=== PATIENT | male | born 2000 | race Two or more races ===

== ENCOUNTER 2024-06-16 09:39 | Emergency (ER) | payer MEDICAID, SELFPAY ==
[2024-06-16 10:31] VITALS: BP 141/84; PULSE 116; RESP 18; TEMP 37.3; O2SAT 95; BMI 23.8
--- NOTE | 2024-06-16 11:00 | EDNOTE_ITS ---
Upper Respiratory Inf. RME/HPI General Chief Complaint: Flu Like Symptoms Stated Complaint: BAD CHILLS/BODYACHES Time Seen by Provider: 06/16/24 10:07 Arrival date/time: 06/16/24 09:39 This is a 23-year-old male that comes in with complaints of back pain, chills, fever, body aches, sore throat, headache and congestion that started a few days ago. Patient states that his throat feels sore for the past couple weeks. Patient denies any past medical history. Related Data Previous Rx's ?Medication ?Instructions ?Recorded Albuterol Sulfate HFA (INHALER) 1 - 2 puff inhalation Q4-6HRPRN ##1 12/13/11 (PROVENTIL HFA (INHALER)) ibuprofen 800 mg tablet 800 mg PO TID PRN pain #30 t abs 10/23/20 ibuprofen 800 mg tablet 800 mg PO TID PRN pain #30 t abs 11/09/22 hydroxyzine HCl 50 mg tablet 50 mg PO TID PRN anxiety #30 tabs 05/03/23 amoxicillin 875 mg-potassium 1 tab PO BID 7 days #14 t abs 06/16/24 clavulanate 125 mg tablet ibuprofen 800 mg tablet 800 mg PO Q6H PRN pain #14 t abs 06/16/24 Allergies Allergy/AdvReac Type Severity Reaction Status Date / Time No Known Allergies Allergy Verified 06/16/24 09:41 Course Orders Category Date Time Status Bedside Influenza A&B Antigen Test NOW Care 06/16/24 11:00 Active Acetaminophen Tab [Tylenol ES Tab] Med 06/16/24 11:00 Discontinued 1,000 mg PO X1 ONE Ibuprofen Tab [Motrin Tab] Med 06/16/24 11:00 Discontinued 800 mg PO X1 ONE Vital Signs Vital signs: Vital Signs Temperature 99.2 F 06/16/24 10:31 Pulse Rate 116 H 06/16/24 10:31 Respiratory Rate 18 06/16/24 10:31 Blood Pressure 141/84 H 06/16/24 10:31 Pulse Oximetry (%) 95 06/16/24 10:31 Oxygen Delivery Method Room Air 06/16/24 10:31 Upper Respiratory Infection Medications / Prescriptions Medication administrations:: Medication Administration History Discontinued Medications Acetaminophen (Acetaminophen 500 Mg Tablet) 1,000 mg PO X1 ONE Stop: 06/16/24 11:01 Last Admin: 06/16/24 11:07 Dose: 1,000 mg Documented By: CATHERINE Ibuprofen (Ibuprofen Tab 400 Mg Tablet) 800 mg PO X1 ONE Stop: 06/16/24 11:01 Last Admin: 06/16/24 11:06 Dose: 800 mg Documented By: CATHERINE Discharge Plan Plan Patient Disposition: HOME (Self Care) Patient condition on transfer: Stable Prescriptions/Referrals Prescriptions/Med Rec: New ibuprofen 800 mg tablet 800 mg PO Q6H PRN (Reason: pain) Qty: 14 0RF amoxicillin-pot clavulanate 875-125 mg tablet 1 tab PO BID 7 Days Qty: 14 0RF No Action Albuterol Sulfate HFA (INHALER) (PROVENTIL HFA (INHALER)) 8.5 GM HFA.AER.AD 1 - 2 puff Inhalation Q4-6HRPRN Qty: 1 0RF Rx Instructions: with spacer ibuprofen 800 mg tablet 800 mg PO TID PRN (Reason: pain) Qty: 30 0RF ibuprofen 800 mg tablet 800 mg PO TID PRN (Reason: pain) Qty: 30 0RF hydroxyzine HCl 50 mg tablet 50 mg PO TID PRN (Reason: anxiety) Qty: 30 0RF Problem List Clinical Impression: Acute bacterial tonsillitis, Influenza A Patient/Caregiver Discharge Instructions Discharge Activity: activity as tolerated Education Materials: Tonsillitis in Adults, The Flu (Influenza) Additional Instructions: Follow up with primary provider in 1-2 days. Come back to ED if symptoms change or worsen Print Language: Maori Stand Alone Forms: Yasmine Award Info., Patient Portal Info Letter PA/TOOTH CLERK Supervising Physician PA/TOOTH CLERK Supervising Physician: gladys
[2024-06-16] MEDS: IBUPROFEN TAB 400 MG TABLET 800 MG PO (11:06)
[2024-06-16] MEDS: ACETAMINOPHEN 500 MG TABLET 1000 MG PO (11:07)
== END 2024-06-16 11:24 | disposition home or self-care (01) ==
LOC: SERX 11:17
PROVIDERS: Emergency Provider Family Medicine
DX: J10.1 Influenza due to other identified influenza virus with other respiratory manifestations (principal)
CPT/HCPCS: 87400; 99283; A9270

== ENCOUNTER 2024-12-31 05:56 | Emergency (ER) | payer MEDICAID, SELFPAY ==
[2024-12-31 05:57] VITALS: BMI 37.0
[2024-12-31 06:25] VITALS: BP 137/91; PULSE 72; RESP 19; TEMP 36.7; O2SAT 100
--- NOTE | 2024-12-31 06:29 | XR_ITS ---
Examination: PA lateral chest 2 views Technique: Upright PA lateral chest 2 views Date and time: December 31, 2024, 0716 hrs., Comparison November 09, 2022 Indications: Chest pain today. Findings: No significant cardiac enlargement. No pneumonia or pulmonary edema The osseous structures are intact Impression: No active disease
--- NOTE | 2024-12-31 06:29 | EKG_ITS ---
[facility] Test Date: 2024-12-31 Pat Name: CURTIS CHACON Department: Room: - Gender: Male [employer]: : 2000 Requested By: Zaire Diaz Order Number: [id number] Reading MD: Zaire Diaz Measurements Intervals [place] Rate: 67 P: 34 CT: 134 QRS: 9 QRSD: 113 T: 44 QT: 418 QTc: 444 Interpretive Statements SINUS RHYTHM WITH SINUS ARRHYTHMIA MODERATE INTRAVENTRICULAR CONDUCTION DELAY [110+ ms QRS DURATION] NONSPECIFIC ST ELEVATION [0.05+ mV ST ELEVATION] Compared to ECG 11/09/2022 12:21:14 Intraventricular conduction delay now present ST (T wave) deviation now present /store/S0/[id number]/ecg/[id number].pdf
--- NOTE | 2024-12-31 06:36 | PD.EDARRY ---
ED Arrhythmia Palp. RME/HPI General Chief Complaint: Shortness of Breath/Dyspnea Stated Complaint: DIFFICULTY BREATHING, FEELS LIKE FAINTING Time Seen by Provider: 12/31/24 06:21 Source: patient Arrival date/time: 12/31/24 05:56 24-year-old male with no known medical history presents to the emergency room with a chief complaint of difficulty breathing and palpitations x 1 hour Mode of arrival: ambulatory Limitations: no limitations Related Data Previous Rx's ?Medication ?Instructions ?Recorded Albuterol Sulfate HFA (INHALER) 1 - 2 puff inhalation Q4-6HRPRN ##1 12/13/11 (PROVENTIL HFA (INHALER)) ibuprofen 800 mg tablet 800 mg PO TID PRN pain #30 tabs 10/23/20 ibuprofen 800 mg tablet 800 mg PO TID PRN pain #30 tabs 11/09/22 hydroxyzine HCl 50 mg tablet 50 mg PO TID PRN anxiety #30 tabs 05/03/23 ibuprofen 800 mg tablet 800 mg PO Q6H PRN pain #14 tabs 06/16/24 Allergies Allergy/AdvReac Type Severity Reaction Status Date / Time No Known Allergies Allergy Verified 06/16/24 09:41 Review of Systems Review of Systems Systems Reviewed: All systems reviewed, normal except as documented Constitutional Constitutional: Reports system reviewed and no additional complaints, except as documented, Denies fatigue, Denies fever(s), Denies headache(s) and Denies weakness Eyes Eyes: Reports system reviewed and no additional complaints, except as documented, Denies blurry vision and Denies change in vision ENT Ears, Nose, Mouth, and Throat: Reports system reviewed and no additional complaints, except as documented, Denies otalgia, Denies headache(s), Denies nasal congestion, Denies throat swelling and Denies vertigo Cardiovascular Cardiovascular: Reports system reviewed and no additional complaints, except as documented, Denies chest pain, Denies dyspnea, Denies dyspnea on exertion, Reports irregular heart rhythm, Reports lightheadedness, Reports palpitations and Reports paroxysmal nocturnal dyspnea Respiratory Respiratory: Reports system reviewed and no additional complaints, except as documented, Denies chest congestion, Denies cough, Denies dyspnea, Denies dyspnea on exertion and Denies wheezing Gastrointestinal Gastrointestinal: Reports system reviewed and no additional complaints, except as documented, Denies abdominal pain, Denies cramping, Denies nausea and Denies vomiting Genitourinary Genitourinary: Reports system reviewed and no additional complaints, except as documented, Denies dysuria and Denies hematuria Musculoskeletal Musculoskeletal: Reports system reviewed and no additional complaints, except as documented and Denies back pain Integumentary/Breasts Skin/Breast: Reports system reviewed and no additional complaints, except as documented and Denies wounds Neurologic Neurologic: Reports system reviewed and no additional complaints, except as documented, Denies confusion, Denies headache(s), Denies lack of coordination, Denies vertigo and Denies weakness Psychiatric Psychiatric: Reports system reviewed and no additional complaints, except as documented, Denies anxiety, Denies confusion, Denies depression, Denies paranoia, Denies suicidal ideation and Denies tactile hallucinations Endocrine Endocrine: Reports system reviewed and no additional complaints, except as documented, Denies fatigue and Reports palpitations Hematologic/Lymphatic Hematologic/Lymphatic: Reports system reviewed and no additional complaints, except as documented and Denies lymphadenopathy Allergic/Immunologic Allergic/Immunologic: Reports system reviewed and no additional complaints, except as documented, Denies throat swelling, Denies urticaria and Denies wheezing ED Exam General Limitations: Present no limitations General appearance: Present alert and in no apparent distress Head Head exam: Present atraumatic Eye Eye exam: Present normal appearance, PERRL and EOMI ENT ENT exam: Present normal exam, normal oropharynx and mucous membranes moist Neck Neck exam: Present normal inspection, full ROM and trachea midline Chest Chest inspection: Present normal inspection and symmetric chest wall rise Respiratory Respiratory exam: Present normal lung sounds bilaterally Cardiovascular Cardiovascular exam: Present regular rate, normal rhythm, normal heart sounds, +S1 and +S2; Absent bradycardia, tachycardia, irregular rhythm, systolic murmur, diastolic murmur, rubs, gallop, clicks, JVD, +S3 or +S4 Abdominal Exam Abdominal exam: Present soft and normal bowel sounds; Absent tenderness Extremities Exam Extremities exam: Present normal inspection and full ROM Back Exam Back exam: Present normal inspection and full ROM Neurological Exam Neurological exam: Present alert, oriented X3 and CN II-XII intact Psychiatric Psychiatric exam: Present normal affect and normal mood Skin Skin exam: Present warm, dry, intact and normal color Course Quality Measures none Orders Category Date Time Status EKG (ED ONLY) *Do not use* NOW Care 12/31/24 06:29 Completed EKG (ED Only) Stat Exams 12/31/24 06:29 Ordered XR chest 2V Stat Exams 12/31/24 06:29 Ordered Alcohol, Blood Medical Stat Lab 12/31/24 06:29 Ordered B-Type Natriuretic Peptide Stat Lab 12/31/24 06:29 Ordered CBC Stat Lab 12/31/24 06:29 Ordered Comprehensive Metabolic Panel Stat Lab 12/31/24 06:29 Ordered Drug Screen,Urine Stat Lab 12/31/24 06:29 Ordered Free T4 (Free Thyroxine) Stat Lab 12/31/24 06:29 Ordered TSH [Thyroid Stimulating Hormone] Stat Lab 12/31/24 06:29 Ordered Troponin I Stat Lab 12/31/24 06:29 Ordered Urinalysis, C/S if Indicated Stat Lab 12/31/24 06:29 Ordered Vital Signs Vital signs: Vital Signs Temperature 98.0 F 12/31/24 06:25 Pulse Rate 72 12/31/24 06:25 Respiratory Rate 19 12/31/24 06:25 Blood Pressure 137/91 H 12/31/24 06:25 Pulse Oximetry (%) 100 12/31/24 06:25 Oxygen Delivery Method Room Air 12/31/24 06:25 PROCEDURES: EKG Interpretation #1: Date of EK12/31/24 Rate: 67 Interpretation: Reviewed by me EKG Impression: Normal sinus rhythm Arrhythmia/Palpitations MDM Narrative MDM Narrative:: 24-year-old male with no known medical history presents to the emergency room with a chief complaint of difficulty breathing and palpitations x 1 hour Patient is hemodynamically stable and in no apparent distress Physical examination shows a soft nontender abdomen. Patient has clear bilateral lung sounds there is no wheezing stridor or any abnormal breath sound. Patient has a strong and regular rhythm S1 and S2 noted CBC CMP were negative for any acute findings. Chest x-ray was negative for any pneumonic infiltrates. EKG shows normal sinus rhythm at 67 bpm Patient was discharged and educated to follow-up with primary care provider in the next 24 to 48 hours and return to the emergency room for any evidence of worsening signs or symptoms Patient data External records reviewed:: [facility] previous records Clinical information provided by:: patient Social determinants that could affect healthcare access:: none Patient has the following chronic illnesses:: No chronic illness How is presenting disease/condition affected by chronic disease/condition?: no chronic disease Evaluation data The following diagnostics were reviewed and interpreted by me:: lab results and radiology exam(s) Lab and/or radiology exams considered but not ordered:: Labs and radiology exams considered and ordered Interpretation Summary: Chest x-ray- Medications / Prescriptions Medications or Prescriptions considered but not ordered:: No medication given Medication administrations:: No medication given Consultations Consultation(s) initiated? (list below): No Diagnosis Differential diagnosis arrhythmia/palpitations: palpitations, anxiety, artial fibrillation and other (Hypokalemia) Most likely diagnosis given after review of the tests above:: Hypokalemia Admission Indicated Admission indicated?: not indicated Admission Request Was there a request for admission?: No Disposition Plan Disposition Plan: Discharge Discharge Attestation Discharge Attestation: The patient and all family members were given an opportunity to ask questions and understood the discharge instructions. Discharge instructions specifically effects, indications for sooner follow up or return to the emergency department, and the expected course of current diagnosis. Patient condition: Stable Discharge Plan Plan Patient Disposition: HOME (Self Care) Discharge Disposition comment: Stable Prescriptions/Referrals Prescriptions/Med Rec: No Action Albuterol Sulfate HFA (INHALER) (PROVENTIL HFA (INHALER)) 8.5 GM HFA.AER.AD 1 - 2 puff Inhalation Q4-6HRPRN Qty: 1 0RF Rx Instructions: with spacer ibuprofen 800 mg tablet 800 mg PO TID PRN (Reason: pain) Qty: 30 0RF ibuprofen 800 mg tablet 800 mg PO TID PRN (Reason: pain) Qty: 30 0RF hydroxyzine HCl 50 mg tablet 50 mg PO TID PRN (Reason: anxiety) Qty: 30 0RF ibuprofen 800 mg tablet 800 mg PO Q6H PRN (Reason: pain) Qty: 14 0RF Referrals: No Primary/Family,Physician [Primary Care Provider] - In 1 week Problem List Clinical Impression: Hypokalemia Patient/Caregiver Discharge Instructions Education Materials: Discharge Instructions for ..., ED Hypokalemia Additional Instructions: Please follow-up with your primary care provider in the next 24 to 48 hours Your cardiac examination was within normal limits. Your chest x-ray was negative for any pneumonic infiltrates or any acute findings Your potassium level was mildly low. For any evidence of worsening signs or symptoms return to the emergency room immediately Print Language: Amharic Stand Alone Forms: Yasmine Award Info., Work/School Release, Patient Portal Info Letter PA/ASW/ASUW TACTICAL AIR CONTROLLER Supervising Physician PA/ASW/ASUW T[employer]ICAL [employer]ER Supervising Physician: Dr. Packer
[2024-12-31 06:46] LABS: Basophils # (Auto) 0.1 Thou/mm3 (0.0-0.2); Basophils % (Auto) 1 % (0-2.5); Eosinophils # (Auto) 0.7 Thou/mm3 (0.0-0.5); Eosinophils % (Auto) 5 % (0-10); Hematocrit 46.0 % (41.0-53.0); Hemoglobin 16.0 g/dL (13.5-16.0); Immature Granulocytes Auto 0.06 Thou/mm3 (0.00-0.00); Lymphocytes # (Auto) 5.0 Thou/mm3 (1.0-4.8); Lymphocytes % (Auto) 36 % (10-50); Mean Corpuscular HGB Conc 34.8 g/dl (31.0-37.0); Mean Corpuscular Hemoglobin 31.3 pg (25.0-35.0); Mean Corpuscular Volume 90 fL (80-100); Monocytes # (Auto) 1.0 Thou/mm3 (0.0-0.8); Monocytes % (Auto) 7 % (0-12); Neutrophils # (Auto) 7.0 Thou/mm3 (1.8-7.7); Neutrophils % (Auto) 50 % (37-80); Nucleated Red Blood Cell # 0.00 Thou/mm3 (0.00-0.00); Nucleated Red Blood Cell % 0 /100 WBC (0); Platelet Count 324 Thou/mm3 (140-440); RDW Standard Deviation 40.5 fL (35.1-43.9); Red Blood Count 5.11 Miln/mm3 (4.50-5.90); White Blood Count 14.0 Thou/mm3 (3.8-10.6)
[2024-12-31 07:06] LABS: B-Type Natriuretic Peptide < 20 pg/mL (0-100)
[2024-12-31 07:21] LABS: Alanine Aminotransferase 36 U/L (10-49); Albumin, Serum 4.9 gm/dL (3.5-5.0); Albumin/Globulin Ratio 1.9 (1.2-2.2); Alcohol, Blood Medical < 3.0 mg/dL (0-10.0); Alkaline Phosphatase 127 U/L (46-116); Anion Gap 14 (7-16); Aspartate Amino Transferase 25 U/L (0-34); BUN/Creatinine Ratio 10 Ratio (12-20); Bilirubin,Total 0.8 mg/dL (0.3-1.2); Blood Urea Nitrogen 9 mg/dL (9-23); Calcium 10.1 mg/dL (8.3-10.6); Calcium (Corrected) 10.1 mg/dL (8.5-10.1); Carbon Dioxide 23.5 mMol/L (20.0-31.0); Chloride 102 mMol/L (98-107); Creatinine (Component) 0.9 mg/dL (0.6-1.3); Estimated Creatinine Clearance 173.5 mL/min (>60); Free T4 (Free Thyroxine) 1.17 ng/dL (0.89-1.76); Globulin 2.6 gm/dL (2.3-3.5); Glucose 125 mg/dL (74-106); Osmolality,Calculated 277 (275-295); Potassium 3.2 mMol/L (3.4-5.1); Sodium 139 mMol/L (136-145); Thyroid Stimulating Hormone 2.95 uIU/mL (0.55-4.78); Total Protein 7.5 gm/dL (5.7-8.2); Troponin I < 0.002 ng/mL (0.0-0.045); eGFR > 60 See Note
[2024-12-31 07:30] LABS: Collection Type, Urine Clean Catch; Squamous Epithelial Cell,Urine 0 /hpf (0-5)
[2024-12-31 07:33] LABS: Bilirubin,Urine Negative (Negative); Blood,Urine Negative (Negative); Clarity,Urine Clear (Clear/Hazy); Color,Urine Lt-Yellow (Lt Yel-Yel); Culture Indicated,Urine Not Indicated; Glucose, Urine Negative (Negative); Ketones,Urine Negative (Negative); Leukocyte Esterase,Urine Negative (Negative); Nitrite,Urine Negative (Negative); PH,Urine 7.0 (5.0-7.0); Protein,Urine Trace (Neg - Trace); RBC,Urine 1 /hpf (0-3); Specific Gravity,Urine 1.026 (1.001-1.035); Urobilinogen,Urine Negative mg/dL (0.0-1.0); WBC,Urine 1 /hpf (0-5)
[2024-12-31 07:48] LABS: Amphetamine/Methamp Scrn,U Negative (Negative); Barbiturate Screen,Urine Negative (Negative); Benzodiazepines Screen,Urine Negative (Negative); Benzoylecgonine Screen, Ur Negative (Negative); Fentanyl Screen,Urine Negative (Negative); Opiate Screen,Urine Negative (Negative); THC Screen,Urine Negative (Negative)
== END 2024-12-31 08:50 | disposition home or self-care (01) ==
PROVIDERS: Nurse Practitioner Family; Emergency Provider Family Medicine
DX: E87.6 Hypokalemia (principal); R07.9 Chest pain, unspecified; I49.8 Other specified cardiac arrhythmias
CPT/HCPCS: 36415; 71046; 80053; 80307; 80320; 81001; 83880; 84439; 84443; 84484; 85025; 93005; 99283; A9270; G0480